=== PATIENT | female | born 1950 | race Caucasian/White ===

== ENCOUNTER 2016-11-15 11:41 | Emergency (ER) | payer MEDICARE, OTHER | END 2016-11-15 16:15 | disposition home or self-care (01) | LOC: ER1 11:41 | DX: S01.01XA Laceration without foreign body of scalp, initial encounter (principal); Z88.6 Allergy status to analgesic agent; W22.8XXA Striking against or struck by other objects, initial encounter | CPT/HCPCS: 12002; 70450; 71020; 90471; 90714; 99284 ==

== ENCOUNTER → 2016-12-07 | Outpatient (CLI) | payer MEDICARE, OTHER | LOC: RAD 10:03 | DX: M54.5 Low back pain (principal); M43.16 Spondylolisthesis, lumbar region | CPT/HCPCS: 72100 ==

== ENCOUNTER → 2016-12-17 | Outpatient (CLI) | payer MEDICARE, OTHER ==
[2016-12-17 09:08] LABS: HEMOGLOBIN 12.9 gm/dl (12.3-15.3); RED BLOOD COUNT 4.11 M/UL (4.00-5.10); WHITE BLOOD COUNT 4.4 K/UL (4.5-11.0)
[2016-12-17 09:28] LABS: BUN/CREATININE RATIO 27 (0-10)
== END ==
LOC: LAB 08:28
PROVIDERS: Physician Assistant
DX: E78.5 Hyperlipidemia, unspecified (principal); E03.9 Hypothyroidism, unspecified; E55.9 Vitamin D deficiency, unspecified
CPT/HCPCS: 36415; 80053; 80061; 84443; 85025

== ENCOUNTER → 2017-01-21 | Outpatient (CLI) | payer MEDICARE, OTHER | LOC: KOH-I 15:17 | DX: M79.605 Pain in left leg (principal); E55.9 Vitamin D deficiency, unspecified; E78.2 Mixed hyperlipidemia; M81.0 Age-related osteoporosis without current pathological fracture; M54.5 Low back pain | CPT/HCPCS: 93971 ==

== ENCOUNTER → 2020-09-06 | Outpatient (CLI) | payer MEDICARE, OTHER ==
[~2020-09-06] MED LIST: ASPIRIN CHEWABL81 MG PO; CALCIUM 600 +1 EA10 PO; CALCIUM600 MG PO; CICLOPIROX 8%34.6 ML TP; CITALOPRAM HBR40 MG PO; CLARITIN 10MG T10 MG PO; ELIQUIS 2.5 MG2.5 MG PO; ESTRADIOL0.5 MG PO; FLEXERIL 10 MG10 MG PO; FOSAMAX70 MG PO; IBUPROFEN800 MG PO; KEFLEX CAP 500500 MG PO; LEVOTHYROXINE50 MCG PO; LIPITOR TAB 1010 MG PO; LOTRIMIN CREAM15 GM TP; MELATONIN5 MG PO; MULTIVITAMINS1 EAC1 PO; NORCO 7.5-3251 EACH PO; PERCOCET 10-321 EACH PO; VITAMIN C 500500 MG PO; VITAMIN D2000 UNI1 PO; VOLTAREN TOP
== END ==
LOC: KOH-I 14:25 → EXRD 09-07 11:30 → KOH-I 09-07 11:30
DX: Z13.820 Encounter for screening for osteoporosis (principal); Z78.0 Asymptomatic menopausal state; M85.80 Other specified disorders of bone density and structure, unspecified site; M81.0 Age-related osteoporosis without current pathological fracture
CPT/HCPCS: 77080

== ENCOUNTER → 2021-01-03 | Outpatient (CLI) | payer MEDICARE ==
[~2021-01-03] VITALS: Ht 167.6 cm; Wt 74.8 kg
== END ==
LOC: OPSV 11:35
DX: M81.0 Age-related osteoporosis without current pathological fracture (principal)
CPT/HCPCS: 96372

== ENCOUNTER → 2021-03-14 | Day surgery (SDC) | payer MEDICARE ==
[~2021-03-14] MED LIST changes: +MINOCYCLINE HC100 M1 PO; +PROLIA INJ60 MG/1 ML SC
== END | disposition home or self-care (01) ==
LOC: OR 06:46
PROVIDERS: Surgery
PROC: 0DBL8ZX Excision of Transverse Colon, Via Natural or Artificial Opening Endoscopic, Diagnostic (ICD-10-PCS; principal; 2021-03-14 08:45)
DX: Z12.11 Encounter for screening for malignant neoplasm of colon (principal); D12.3 Benign neoplasm of transverse colon; K57.30 Diverticulosis of large intestine without perforation or abscess without bleeding; M19.90 Unspecified osteoarthritis, unspecified site; E78.00 Pure hypercholesterolemia, unspecified; E78.5 Hyperlipidemia, unspecified; E03.9 Hypothyroidism, unspecified; M54.5 Low back pain; M81.0 Age-related osteoporosis without current pathological fracture; E55.9 Vitamin D deficiency, unspecified; M32.9 Systemic lupus erythematosus, unspecified; D64.9 Anemia, unspecified; Z87.891 Personal history of nicotine dependence; Z20.822 Contact with and (suspected) exposure to COVID-19; Z88.5 Allergy status to narcotic agent; Z79.82 Long term (current) use of aspirin; Z79.899 Other long term (current) drug therapy; Z90.710 Acquired absence of both cervix and uterus; Z85.07 Personal history of malignant neoplasm of pancreas; Z85.53 Personal history of malignant neoplasm of renal pelvis
CPT/HCPCS: J2704; J7030

== ENCOUNTER → 2021-04-03 | Outpatient (CLI) | payer MEDICARE | LOC: EXRD 11:44 | DX: J01.90 Acute sinusitis, unspecified (principal); R05 Cough; R50.9 Fever, unspecified; R91.8 Other nonspecific abnormal finding of lung field | CPT/HCPCS: 71046 ==

== ENCOUNTER → 2021-07-05 | Outpatient (CLI) | payer MEDICARE ==
[~2021-07-05] VITALS: Ht 167.6 cm; Wt 74.8 kg
== END ==
LOC: OPSV 11:56
DX: M81.0 Age-related osteoporosis without current pathological fracture (principal)
CPT/HCPCS: 96372

== ENCOUNTER → 2021-07-31 | Outpatient (CLI) | payer MEDICARE | LOC: MAMO 07-14 10:30 | DX: Z12.31 Encounter for screening mammogram for malignant neoplasm of breast (principal) | CPT/HCPCS: 77063; 77067 ==

== ENCOUNTER → 2021-08-18 | Outpatient (CLI) | payer MEDICARE | LOC: MAMO 10:00 | DX: R92.8 Other abnormal and inconclusive findings on diagnostic imaging of breast (principal) | CPT/HCPCS: 76641-RT; 77065 ==

== ENCOUNTER → 2021-11-16 | Outpatient (CLI) | payer MEDICARE | LOC: KOH-I 15:48 | DX: Z87.891 Personal history of nicotine dependence (principal) | CPT/HCPCS: 71271 ==

== ENCOUNTER → 2022-01-03 | Outpatient (CLI) | payer MEDICARE ==
[~2022-01-03] VITALS: Ht 167.6 cm; Wt 74.8 kg
== END ==
LOC: OPSV 12:00
DX: M81.0 Age-related osteoporosis without current pathological fracture (principal)
CPT/HCPCS: 96372